=== PATIENT | male | born 1930 | race African-American/Black ===

== ENCOUNTER 2017-12-21 22:35 | Inpatient (IN) ==
[2017-12-22 03:08] LABS: Basophils # 0.1 10*3/uL (0.0-0.2); Basophils % 0.4 % (0.0-0.8); Eosinophils % 0.3 % (0.00-10.9); Hematocrit 34.2 VOL% (42.0-52.0); Hemoglobin 11.2 GM/DL (14.0-18.0); Immature Granulocytes % 0.5 %; Immature Granulocytes Absolute 0.06 #; Lymphocytes # 0.7 10*3/uL (1.4-4.0); Lymphocytes % 5.9 % (21.2-54.2); Mean Corpuscular HGB Conc 32.7 GM/DL (32-36); Mean Corpuscular Hemoglobin 28 PG (27-34); Mean Corpuscular Volume 84.7 FL (87-102); Mean Platelet Volume 9.6 FL (9.6-12.0); Monocytes # 1.4 10*3/uL (0.11-0.8); Monocytes % 11.9 % (1.7-12.7); Neutrophils # 9.5 10*3/uL (1.4-7.4); Platelet Count 332 T/CUMM (130-400); Red Blood Count 4.04 MC/CUMM (3.8-5.5); Red Cell Distribution Width 16.9 % (9.3-17.3); White Blood Count 11.7 T/CUMM (4-12)
[2017-12-22 03:13] LABS: Apearance,Urine CLEAR (Clear); Bilirubin,Urine Negative (Negative); Blood, Urine Small mg/dL (Negative); Glucose,Urine (UA) Negative (Negative); Ketones,Urine Negative (Negative); Mucus,Urine Occasional /LPF (Occasional); Nitrite,Urine Negative (Negative); Protein,Urine Negative; Squamous Epithelial Cell,Urine Occasional /HPF (0-10); Urine Color Yellow (Yellow); Urine Specific Gravity 1.014 (1.001-1.035); Urine Urobilinogen < 2.0 EU/DL (0.2-1.0); WBC,Urine 1 /HPF (0-6)
[2017-12-22 03:28] LABS: Alanine Aminotransferase 66 U/L (16-61); Albumin 2.4 G/DL (3.4-5.0); Alkaline Phosphatase 110 U/L (45-117); Aspartate Amino Transferase 122 U/L (0-37); Bilirubin,Total < 0.39 MG/DL (0.2-1.0); Blood Urea Nitrogen 16 MG/DL (7-18); Glucose 116 MG/DL (74-106); Osmolality,Calculated 280.4 MOS/KG (273-304); Potassium 4.6 MMOL/L (3.5-5.1); Sodium 140 MMOL/L (136-145); Total Protein 7.1 G/DL (6.4-8.3); Troponin I Only < 0.015 NG/ML (0.00-0.045)
[2017-12-22 03:35] LABS: VBG Base Excess 0.3 MEQ/L (0-4); VBG HCO3 24.2 MEQ/L (24-28); VBG Oxygen Saturation 72.2 %; VBG PCO2 42.6 MMHG (41-51); VBG PH 7.384; VBG PO2 43.6 MMHG (17-40)
[2017-12-22] MEDS ORDERED: OXYMETAZOLINE 0.05% NASAL SPRAY 15 ML BOTTLE ONE (04:38)
[2017-12-22] MEDS ORDERED: ACETAMINOPHEN 325 MG TABLET PO PRN (05:55)
[2017-12-22] MEDS ORDERED: ONDANSETRON 4 MG/2 ML VIAL IV PRN (05:55)
[2017-12-22] MEDS ORDERED: cefTRIAXone 1,000 MG in SODIUM CHLORIDE 0.9% 100 ML IV STA (06:02)
[2017-12-22] MEDS ORDERED: AZITHROMYCIN 250 MG TABLET PO STA (06:02)
[2017-12-22] MEDS ORDERED: ALBUTEROL 2.5 MG/3 ML NEB RESP TX PRN (06:12)
[2017-12-22] MEDS: ALBUTEROL/IPRATROPIUM 3 ML NEB RESP TX SCH ×3 (07:35→19:17)
[2017-12-22] MEDS: ENOXAPARIN 40 MG/0.4 ML SYRINGE SUBCUT SCH (08:23)
[2017-12-22] MEDS: PANTOPRAZOLE 40 MG TABLET PO SCH (08:23)
[2017-12-22 10:51] LABS: INR 1.1; PT Patient Result 11.5 SECS
[2017-12-22] MEDS: DEXAMETHASONE 10 MG/1 ML VIAL IV SCH ×2 (11:12→18:31)
[2017-12-22 14:52] LABS: Lymphocytes,Pleural Fluid 82 %; Monocytes,Pleural Fluid 2 %; Neutrophils,Pleural Fluid 16 %; RBC,Pleural Fluid 6677 T/CUMM
[2017-12-22 14:55] LABS: Total Protein,Body Fluid 4.5 G/DL
[2017-12-23] MEDS: ALBUTEROL/IPRATROPIUM 3 ML NEB RESP TX SCH ×4 (00:19→19:35)
[2017-12-23] MEDS: DEXAMETHASONE 10 MG/1 ML VIAL IV SCH ×3 (03:32→16:18)
[2017-12-23 06:59] LABS: Hematocrit 31.6 VOL% (42.0-52.0); Hemoglobin 10.4 GM/DL (14.0-18.0); Immature Granulocytes % 0.7 %; Immature Granulocytes Absolute 0.05 #; Lymphocytes # 0.2 10*3/uL (1.4-4.0); Lymphocytes % 2.7 % (21.2-54.2); Mean Corpuscular HGB Conc 32.9 GM/DL (32-36); Mean Corpuscular Hemoglobin 28 PG (27-34); Mean Corpuscular Volume 83.6 FL (87-102); Mean Platelet Volume 9.9 FL (9.6-12.0); Monocytes # 0.3 10*3/uL (0.11-0.8); Monocytes % 4.3 % (1.7-12.7); Neutrophils # 6.8 10*3/uL (1.4-7.4); Neutrophils % 92.3 % (38.7-73.9); Platelet Count 345 T/CUMM (130-400); Red Blood Count 3.78 MC/CUMM (3.8-5.5); Red Cell Distribution Width 17.2 % (9.3-17.3); White Blood Count 7.4 T/CUMM (4-12)
[2017-12-23 07:03] LABS: PT Patient Result 10.7 SECS; Partial Thromboplastin Time 34.3 SECS (0-40)
[2017-12-23 07:08] LABS: Hypochromasia 1+; Lymphocytes 4 % (20-55); Platelet Estimate Adequate; Segmented Neutrophils 94 % (50-85); Total Cells Counted 100
[2017-12-23 07:09] LABS: Giant Platelets Few; Ovalocytes Slight
[2017-12-23 07:32] LABS: Calcium 9.3 MG/DL (8.5-10.1); Osmolality,Calculated 291.7 MOS/KG (273-304); Potassium 5.2 MMOL/L (3.5-5.1)
[2017-12-23] MEDS ORDERED: BENZONATATE 100 MG CAPSULE PO ONE (08:00)
[2017-12-23] MEDS ORDERED: MEPERIDINE 50 MG/1 ML VIAL IM ONE (08:00)
[2017-12-23] MEDS ORDERED: diphenhydrAMINE 50 MG/1 ML VIAL IM ONE (08:00)
[2017-12-23] MEDS ORDERED: LIDOCAINE 2% VISCOUS 100 ML BOTTLE SWISH/SPIT ONE (08:30)
[2017-12-23] MEDS ORDERED: LIDOCAINE 2% 20 ML VIAL RESP TX ONE (08:30)
[2017-12-23] MEDS ORDERED: LIDOCAINE 1% 20 ML VIAL MISC INJ ONE (08:30)
[2017-12-23] MEDS: PANTOPRAZOLE 40 MG TABLET PO SCH ×2 (09:00→16:28)
[2017-12-23] MEDS: ENOXAPARIN 40 MG/0.4 ML SYRINGE SUBCUT SCH (09:00)
[2017-12-23 10:55] LABS: HIV Antigen/Antibody Result Nonreactive (Nonreactive); Hepatitis B Surface Ag Quant < 0.10 Index; Hepatitis B Surface Ag Result Negative (Negative); Hepatitis C Virus Ab Quant 0.18 Index; Hepatitis C Virus Ab Result Negative (Negative)
[2017-12-24] MEDS: ALBUTEROL/IPRATROPIUM 3 ML NEB RESP TX SCH ×4 (01:52→19:05)
[2017-12-24] MEDS: DEXAMETHASONE 10 MG/1 ML VIAL IV SCH ×3 (01:58→16:59)
[2017-12-24] MEDS: ENOXAPARIN 40 MG/0.4 ML SYRINGE SUBCUT SCH (11:04)
[2017-12-24] MEDS: PANTOPRAZOLE 40 MG TABLET PO SCH (11:05)
[2017-12-24] MEDS: MONTELUKAST 10 MG TABLET PO SCH (13:16)
[2017-12-24] MEDS: BENZONATATE 100 MG CAPSULE PO SCH ×2 (15:44→21:43)
[2017-12-25] MEDS: ALBUTEROL/IPRATROPIUM 3 ML NEB RESP TX SCH ×4 (00:41→19:08)
[2017-12-25] MEDS: DEXAMETHASONE 10 MG/1 ML VIAL IV SCH ×3 (02:25→17:46)
[2017-12-25 02:38] LABS: Basophils % 0.1 % (0.0-0.8); Hematocrit 30.2 VOL% (42.0-52.0); Hemoglobin 9.9 GM/DL (14.0-18.0); Immature Granulocytes Absolute 0.16 #; Lymphocytes # 0.2 10*3/uL (1.4-4.0); Lymphocytes % 1.4 % (21.2-54.2); Mean Corpuscular HGB Conc 32.8 GM/DL (32-36); Mean Corpuscular Hemoglobin 28 PG (27-34); Mean Corpuscular Volume 83.9 FL (87-102); Monocytes # 0.8 10*3/uL (0.11-0.8); Monocytes % 5.1 % (1.7-12.7); Neutrophils # 14.8 10*3/uL (1.4-7.4); Neutrophils % 92.4 % (38.7-73.9); Platelet Count 319 T/CUMM (130-400); Red Cell Distribution Width 17.3 % (9.3-17.3)
[2017-12-25 03:01] LABS: Band Neutrophils 1 % (0-10); Lymphocytes 8 % (20-55); Platelet Estimate Normal; Segmented Neutrophils 90 % (50-85); Total Cells Counted 100
[2017-12-25 06:25] LABS: Calcium 9.8 MG/DL (8.5-10.1); Osmolality,Calculated 297.7 MOS/KG (273-304); Potassium 4.9 MMOL/L (3.5-5.1)
[2017-12-25] MEDS: MONTELUKAST 10 MG TABLET PO SCH (10:00)
[2017-12-25] MEDS: PANTOPRAZOLE 40 MG TABLET PO SCH (10:01)
[2017-12-25] MEDS: BENZONATATE 100 MG CAPSULE PO SCH ×3 (10:01→20:43)
[2017-12-25] MEDS: ENOXAPARIN 40 MG/0.4 ML SYRINGE SUBCUT SCH (10:01)
[2017-12-25] MEDS: cephALEXin 500 MG CAPSULE PO SCH ×3 (15:18→20:43)
[2017-12-26] MEDS: ALBUTEROL/IPRATROPIUM 3 ML NEB RESP TX SCH ×3 (00:08→14:04)
[2017-12-26] MEDS: DEXAMETHASONE 10 MG/1 ML VIAL IV SCH ×2 (09:24)
[2017-12-26] MEDS: BENZONATATE 100 MG CAPSULE PO SCH ×2 (09:24→16:16)
[2017-12-26] MEDS: cephALEXin 500 MG CAPSULE PO SCH ×3 (09:24→16:16)
[2017-12-26] MEDS: MONTELUKAST 10 MG TABLET PO SCH (09:24)
[2017-12-26] MEDS: PANTOPRAZOLE 40 MG TABLET PO SCH (09:24)
[2017-12-26] MEDS: ENOXAPARIN 40 MG/0.4 ML SYRINGE SUBCUT SCH (09:25)
[2017-12-26 15:56] VITALS: BP 144/69
[2017-12-26] MEDS ORDERED: PRAVASTATIN 20 MG TABLET PO SCH (21:00)
[2017-12-26] MEDS ORDERED: CETIRIZINE 10 MG TABLET PO SCH (21:00)
[2017-12-26] MEDS ORDERED: TAMSULOSIN 0.4 MG CAPSULE PO SCH (21:00)
[2017-12-26] MEDS ORDERED: TOLTERODINE 2 MG TABLET PO SCH (21:00)
[2017-12-27] MEDS ORDERED: ACYCLOVIR 200 MG CAPSULE PO SCH (09:00)
[2017-12-27] MEDS ORDERED: amLODIPine 5 MG TABLET PO SCH (09:00)
[2017-12-27] MEDS ORDERED: NON-FORMULARY MEDICATION (Omeprazole [Omeprazole] 40 MG) PO SCH (09:00)
== END 2017-12-26 16:54 | disposition home or self-care (01) | DRG 166 ==
LOC: N.ED 22:35 → N.2E 22:35 → SUATTDRO 12-22 05:24 → N.2E 12-22 06:33 → SUATTDRO 12-24 14:28
PROVIDERS: ADMIT Internal Medicine Infectious Disease; ATTEND Internal Medicine
PROC: IRTHORA (2017-12-22 13:15)